=== PATIENT | male | born 1995 | race Caucasian/White ===

== ENCOUNTER 2017-07-03 12:54 | Emergency (ER) | payer OTHER ==
[2017-07-03 13:05] VITALS: TEMP 98.4
--- NOTE | 2017-07-03 13:16 | EDPHY ---
H & P Time Seen by Provider: 07/03/17 13:09 HPI/ROS: CHIEF COMPLAINT: Abdominal cramping, diarrhea HISTORY OF PRESENT ILLNESS: The patient is a 22-year-old male who presents emergency department with abdominal cramping, diarrhea blood in his stool. His symptoms started on . He describes diffuse lower abdominal discomfort. There is no spot that is more focally uncomfortable when compared to another. No radiation. No flank pain. No fevers or chills. No dysuria frequency. No travel or antibiotic use. The patient took 2 tablets of Imodium initially and 1 last night. REVIEW OF SYSTEMS: My complete review of systems is negative except as mentioned in the HPI. Past Medical/Surgical History: Negative Past surgical history: Inguinal hernia repair Social history: The patient does not smoke Smoking Status: Never smoked Physical Exam: Vitals noted. 36.9, 171/99, 70, 16, 99% on room air GENERAL: Well-appearing, in no acute distress, alert. HEENT: Eyes normal to inspection, normal pharynx, no signs of dehydration. NECK: No thyromegaly, no lymphadenopathy, supple. RESPIRATORY: Clear to auscultation bilaterally, no rales, rhonchi or wheezing. CVS: Regular rate and rhythm, no rubs, murmurs, or gallops. ABDOMEN: Soft, nontender, nondistended, no organomegaly. Benign exam. BACK: Normal to inspection, no CVA tenderness. SKIN: Normal color, no rash, warm, dry. No pallor. EXTREMITIES: No pedal edema, no calf tenderness, no Homans sign or cords, no joint swelling. NEURO/PSYCH: Alert and oriented, normal mood and affect, normal motor sensory exam. Constitutional: Initial Vital Signs Temperature (C) 36.9 C 07/03/17 13:03 Heart Rate 70 07/03/17 13:03 Respiratory Rate 16 07/03/17 13:03 Blood Pressure 171/99 H 07/03/17 13:03 O2 Sat (%) 99 07/03/17 13:03 O2 Delivery Mode Room Air Allergies/Adverse Reactions: No Known Allergies Allergy (Verified 07/03/17 13:05) Home Medications: Medication Instructions Recorded NK [No Known Home Meds] 07/03/17 Medical Decision Making ED Course/Re-evaluation: In the emergency department I discussed etiologies with the patient. I answered all his questions. IV was placed. He is given normal saline 1 L IV for hydration. He is given Reglan 10 mg IV for his abdominal cramping. Patient produced a stool sample. This was sent to the lab. This will not be available as it is a send out. Patient's chemistry panel was unremarkable. His CBC showed a mildly elevated white count of 10. 1400: The patient is feeling better. He has no focal tenderness on exam. UA is negative. 1433: The patient is doing better. He has no nausea or vomiting in the emergency department. He was given follow-up with Gastroenterology. He is aware he needs to call their office on Wednesday to make an appointment. He will continue to take Imodium. He will return to the emergency department with worsening symptoms. Differential Diagnosis: My differential includes but is not limited to viral illness, colitis, diverticulitis, malignancy, mass, electrolyte abnormality, sugar abnormality, appendicitis - Data Points Laboratory Results: Laboratory Results 07/03/17 13:05 07/03/17 13:05 07/03/17 07/03/17 07/03/17 13:09 13:05 13:05 WBC 10.39 10^3/uL H 10^3/uL (3.80-9.50) RBC 5.40 10^6/uL 10^6/uL (4.40-6.38) Hgb 15.2 g/dL g/dL (13.7-17.5) Hct 47.1 % % (40.0-51.0) MCV 87.2 fL fL (81.5-99.8) MCH 28.1 pg pg (27.9-34.1) MCHC 32.3 g/dL L g/dL (32.4-36.7) RDW 12.9 % % (11.5-15.2) Plt Count 243 10^3/uL 10^3/uL (150-400) MPV 9.8 fL fL (8.7-11.7) Neut % (Auto) 72.1 % % (39.3-74.2) Lymph % (Auto) 14.3 % L % (15.0-45.0) [place]hing % (Auto) 12.4 % % (4.5-13.0) Eos % (Auto) 0.5 % L % (0.6-7.6) Baso % (Auto) 0.3 % % (0.3-1.7) Nucleat RBC Rel Count 0.0 % % (0.0-0.2) Absolute Neuts (auto) 7.49 10^3/uL H 10^3/uL (1.70-6.50) Absolute Lymphs (auto) 1.49 10^3/uL 10^3/uL (1.00-3.00) Absolute Monos (auto) 1.29 10^3/uL H 10^3/uL (0.30-0.80) Absolute Eos (auto) 0.05 10^3/uL 10^3/uL (0.03-0.40) Absolute Basos (auto) 0.03 10^3/uL 10^3/uL (0.02-0.10) Absolute Nucleated RBC 0.00 10^3/uL 10^3/uL (0-0.01) Immature Gran % 0.4 % % (0.0-1.1) Immature Gran # 0.04 10^3/uL 10^3/uL (0.00-0.10) Sodium 142 mEq/L mEq/L (134-144) Potassium 4.1 mEq/L mEq/L (3.5-5.2) Chloride 103 mEq/L mEq/L (97-110) Carbon Dioxide 24 mEq/l mEq/l (22-31) Anion Gap 15 mEq/L mEq/L (8-16) BUN 7 mg/dL mg/dL (7-23) Creatinine 0.8 mg/dL mg/dL (0.7-1.3) Estimated GFR > 60 Glucose 101 mg/dL H mg/dL (70-100) Calcium 9.8 mg/dL mg/dL (8.5-10.4) Total Bilirubin 0.4 mg/dL mg/dL (0.1-1.4) Conjugated Bilirubin 0.3 mg/dL mg/dL (0.0-0.5) Unconjugated Bilirubin 0.1 mg/dL mg/dL (0.0-1.1) AST 28 IU/L IU/L (17-59) ALT 60 IU/L IU/L (21-72) Alkaline Phosphatase 70 IU/L IU/L (38-126) Total Protein 7.7 g/dL g/dL (6.3-8.2) Albumin 4.4 g/dL g/dL (3.5-5.0) Lipase 48 IU/L IU/L (23-300) Urine Color YELLOW Urine Appearance CLEAR Urine pH 6.5 (5.0-7.5) Ur Specific [place] 1.015 (1.002-1.030) Urine Protein TRACE H (NEGATIVE) Urine Ketones NEGATIVE (NEGATIVE) Urine Blood NEGATIVE (NEGATIVE) Urine Nitrate NEGATIVE (NEGATIVE) Urine Bilirubin NEGATIVE (NEGATIVE) Urine Urobilinogen 0.2 EU EU (0.2-1.0) Ur Leukocyte Esterase NEGATIVE (NEGATIVE) Urine RBC 0-1 /hpf /hpf (0-3) Urine WBC NONE SEEN /hpf /hpf (0-3) Ur Epithelial Cells TRACE /lpf /lpf (NONE-1+) Amorphous Sediment TRACE /hpf /hpf (NONE-1+) Urine Bacteria TRACE /hpf H /hpf (NONE SEEN) Urine Mucus 1+ /lpf /lpf (NONE-1+) Urine Glucose NEGATIVE (NEGATIVE) Medications Given: Discontinued Medications Dicyclomine HCl (Bentyl) 10 mg PO EDNOW ONE Stop: 07/03/17 13:55 Last Admin: 07/03/17 14:00 Dose: 10 mg Sodium Chloride (Ns) 1,000 mls @ 0 mls/hr IV EDNOW ONE; Wide Open PRN Reason: Protocol Stop: 07/03/17 13:18 Last Admin: 07/03/17 13:21 Dose: 1,000 mls Metoclopramide HCl (Reglan Injection) 10 mg IVP EDNOW ONE Stop: 07/03/17 13:18 Last Admin: 07/03/17 13:21 Dose: 10 mg Departure - Departure Disposition: Home, Routine, Self-Care Clinical Impression: Abdominal pain Qualifiers: Abdominal location: lower abdomen, unspecified Qualified Code(s): R10.30 - Lower abdominal pain, unspecified Diarrhea Qualifiers: Diarrhea type: unspecified type Qualified Code(s): R19.7 - Diarrhea, unspecified Condition: Good Instructions: Acute Diarrhea (ED) Additional Instructions: Return with increasing abdominal pain, focal (localized) abdominal pain, persistent fever, worsening bloody stools, lightheadedness or dizziness, or any other concerns. Referrals: Vishal Hernandez MD, FACG [Medical Doctor] - 3-4 days, if not improved
[2017-07-03] MEDS ORDERED: METOCLOPRAMIDE 10 MG/2 ML VIAL IVP ONE (13:17)
[2017-07-03] MEDS ORDERED: NS 1,000 ML IV ONE (13:17)
[2017-07-03 13:22] LABS: % IMMATURE GRANULYOCYTES 0.4 % (0.0-1.1); ABSOLUTE IMMATURE GRANULOCYTES 0.04 10^3/uL (0.00-0.10); ADD DIFF? NO; ADD MORPH? NO; ADD SCAN? NO; ATYPICAL LYMPHOCYTE FLAG 20 (0-99); FRAGMENT RBC FLAG 0 (0-99); HEMATOCRIT 47.1 % (40.0-51.0); HEMOGLOBIN 15.2 g/dL (13.7-17.5); LEFT SHIFT FLG 20 (0-99); LIPEMIA HEMOLYSIS FLAG 80 (0-99); MEAN CELL HEMOGLOBIN 28.1 pg (27.9-34.1); MEAN CELL HEMOGLOBIN CONCENTR. 32.3 g/dL (32.4-36.7); MEAN CELL VOLUME 87.2 fL (81.5-99.8); MEAN PLATELET VOLUME 9.8 fL (8.7-11.7); PLATELET CLUMPS FLAG 0 (0-99); PLATELET COUNT 243 10^3/uL (150-400); RED CELL DISTRIBUTION WIDTH 12.9 % (11.5-15.2)
[2017-07-03 13:34] LABS: ALANINE AMINOTRANSFERASE 60 IU/L (21-72); ALBUMIN 4.4 g/dL (3.5-5.0); ALKALINE PHOSPHATASE 70 IU/L (38-126); ANION GAP 15 mEq/L (8-16); ASPARTATE AMINOTRANSFERASE 28 IU/L (17-59); BILIRUBIN,TOTAL 0.4 mg/dL (0.1-1.4); BILIRUBIN-CONJUGATED 0.3 mg/dL (0.0-0.5); BILIRUBIN-UNCONJUGATED 0.1 mg/dL (0.0-1.1); CALCIUM 9.8 mg/dL (8.5-10.4); CARBON DIOXIDE 24 mEq/l (22-31); CHLORIDE 103 mEq/L (97-110); CREATININE 0.8 mg/dL (0.7-1.3); GLOMERULAR FILTRATION RATE > 60; GLUCOSE 101 mg/dL (70-100); POTASSIUM 4.1 mEq/L (3.5-5.2); SODIUM 142 mEq/L (134-144); TOTAL PROTEIN 7.7 g/dL (6.3-8.2)
[2017-07-03] MEDS ORDERED: DICYCLOMINE 10 MG CAP PO ONE (13:54)
[2017-07-03 13:59] LABS: COLOR YELLOW; LEUKOCYTE ESTERASE,URINE NEGATIVE (NEGATIVE); NITRITE,URINE NEGATIVE (NEGATIVE); PH,URINE 6.5 (5.0-7.5)
[2017-07-03 14:19] VITALS: BP 150/90; PULSE 80; RESP 14; O2SAT 97
[2017-07-03 14:20] LABS: AMORPHOUS TRACE /hpf (NONE-1+); BACTERIA TRACE /hpf (NONE SEEN); MUCUS 1+ /lpf (NONE-1+); RBC,URINE 0-1 /hpf (0-3); WBC,URINE NONE SEEN /hpf (0-3)
== END 2017-07-03 15:12 | disposition home or self-care (01) ==
LOC: CED 12:54
DX: R19.7 Diarrhea, unspecified (principal); R10.30 Lower abdominal pain, unspecified; E86.9 Volume depletion, unspecified
CPT/HCPCS: 80048-PO; 80076-PO; 81003-PO; 81015-PO; 83690-PO; 85025-PO; 96374; J2765